=== PATIENT | female | born 1990 ===

== ENCOUNTER 2018-09-15 11:05 | Emergency (ER) | payer BC ==
[2018-09-15 11:16] VITALS: O2SAT 100
--- NOTE | 2018-09-15 12:37 | ED PDOC ---
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 Patient unresponsive but occasionally seen looking around when not being directly addressed; however, when being addressed she does not respond verbally and keeps her eyes closed. When patient's arm is lifted and dropped above her head, patient moves her arm to avoid hitting herself in the face. Due to patient's c linical condition, HPI, ROS, and history is limited. PMD: unobtainable Past Medical History Reviewed: Unable To Obtain Vital Signs: Last Vital Signs Temp 100.1 F H 09/15/18 11:12 Pulse 90 09/15/18 12:17 Resp 12 09/15/18 12:17 BP 117/72 09/15/18 12:17 Pulse Ox 100 09/15/18 12:17 - Family History Family History: States: Unknown Family Hx - Allergies Allergies/Adverse Reactions: Allergies Allergy/AdvReac Type Severity Reaction Status Date / Time Unobtainable Allergy Verified 09/15/18 11:12 Review of Systems Review Of Systems: ROS cannot be obtained secondary to pt's inabilty to answer questions. Physical Exam - Reviewed Nursing Documentation Reviewed: Yes Vital Signs Reviewed: Yes - Physical Exam Appears: Positive for: Well (with age appropriate appearance) Head Exam: Positive for: ATRAUMATIC, NORMAL INSPECTION, NORMOCEPHALIC Skin: Positive for: Normal Color, Warm Eye Exam: Positive for: PERRL ENT: Negative for: Other (tongue or oral pharynx swelling) Neck: Positive for: Normal, Painless ROM, Supple Cardiovascular/Chest: Positive for: Regular Rate, Rhythm Respiratory: Positive for: Normal Breath Sounds. Negative for: Crackles, Rales, Rhonchi, Wheezing, Respiratory Distress Gastrointestinal/Abdominal: Positive for: Normal Exam, Soft. Negative for: Tenderness, Other (signs of bruising or trauma to torso) Extremity: Negative for: Other (signs of bruising or trauma to extremities) Neurologic/Psych: Positive for: Other (gag reflex intact; pt localizes to pain) - Laboratory Results Result Diagrams: 09/15/18 14:20 09/15/18 14:20 - ECG O2 Sat by Pulse Oximetry: 100 (RA) Pulse Ox Interpretation: Normal Medical Decision Making Medical Decision Making: Time: 1158 A/P: patient with questionable altered mental status --no indications of trauma on PE --patient keeps eyes closed and not verbally responsive, however when it was mentioned that her clothing was going to be cut off for rapid evaluation, she moaned and opened her eyes --patient seen by EMS, nurses, and MD looking around when she was not obviously being evaluated / addressed --will further talk with patient is she becomes responsive, but in the mean time will attempt to get collateral through coworkers and family. Initial Impression: workup for reported syncopal episode Initial Plan: --EKG --CT Head w/o contrast due to pts unresponsiveness and syncopal episode --Reevaluation 1426 CT Head FINDINGS: HEMORRHAGE: No intracranial hemorrhage. BRAIN: Normal fonseca-white matter differentiation and density are appreciated throughout the cerebrum and cerebellum with the brainstem appearing unremarkable as well. There is no mass effect. There is no suspicious extra-axial fluid collection and the midline brain anatomy appears diffusely unremarkable. VENTRICLES: Unremarkable. No hydrocephalus. CALVARIUM: Unremarkable. PARANASAL SINUSES: Multifocal ethmoid sinusitis incidentally noted. MASTOID AIR CELLS: Unremarkable as visualized. No inflammatory changes. OTHER FINDINGS: None. IMPRESSION: Unremarkable CT of the brain. Incidental multifocal ethmoid sinusitis identified. 1706 Patient reports improvement in symptoms Repeat PE shows no neurological deficit, rash or airway compromise Patient to be discharged home and she has an appointment with her PMD scheduled for tomorrow Return parameters discussed Scribe Attestation: Documented by Jenny Anodide, acting as a scribe for Terri Campos MD. Provider Scribe Attestation: All medical record entries made by the Scribe were at my direction and pe rsonally dictated by me. I have reviewed the chart and agree that the record accurately reflects my personal performance of the history, physical exam, medical decision making, and the department course for this patient. I have also personally directed, reviewed, and agree with the discharge instructions and disposition. Disposition - Clinical Impression Clinical Impression: Altered mental status, unspecified, Syncope - Patient ED Disposition Is Patient to be Admitted: No - Disposition Disposition: Routine/Home (0747) Disposition Time: 17:07 Condition: IMPROVED Instructions: Altered Mental Status (DC) Forms: [facility] (Frisian) Print Language: FAROESE
--- NOTE | 2018-09-15 14:30 | CT ---
Date of service: 09/15/2018 PROCEDURE: CT HEAD WITHOUT CONTRAST. HISTORY: syncope COMPARISON: None available. TECHNIQUE: Axial computed tomography images were obtained through the head/brain without intravenous contrast. Radiation dose: Total exam DLP = 838.96 mGy-cm. This CT exam was performed using one or more of the following dose reduction techniques: Automated exposure control, adjustment of the mA and/or kV according to patient size, and/or use of iterative reconstruction technique. FINDINGS: HEMORRHAGE: No intracranial hemorrhage. BRAIN: Normal fonseca-white matter differentiation and density are appreciated throughout the cerebrum and cerebellum with the brainstem appearing unremarkable as well. There is no mass effect. There is no suspicious extra-axial fluid collection and the midline brain anatomy appears diffusely unremarkable. VENTRICLES: Unremarkable. No hydrocephalus. CALVARIUM: Unremarkable. PARANASAL SINUSES: Multifocal ethmoid sinusitis incidentally noted. MASTOID AIR CELLS: Unremarkable as visualized. No inflammatory changes. OTHER FINDINGS: None. IMPRESSION: Unremarkable CT of the brain. Incidental multifocal ethmoid sinusitis identified.
[2018-09-15 14:38] LABS: BASO # 0.1 K/uL (0.0-0.2); BASO % 0.9 % (0.0-2.0); BLOOD UREA NITROGEN 11 mg/dl (7-17); CALCIUM 8.9 mg/dL (8.4-10.2); EOS # 0.1 K/uL (0.0-0.7); EOS % 0.9 % (0.0-4.0); GFR NON-AFRICAN AMERICAN > 60; HEMOGLOBIN 14.1 g/dL (12.0-16.0); LYMPH # 1.4 K/uL (1.0-4.3); LYMPH % 20.9 % (20.0-40.0); MEAN CELL VOLUME 93.2 fl (81.0-99.0); MEAN CORPUSCULAR HEMOGLOBIN 31.8 pg (27.0-31.0); MEAN CORPUSCULAR HGB CONC 34.1 g/dL (33.0-37.0); MEAN PLATELET VOLUME 8.8 fl (7.2-11.7); MONO # 0.5 K/uL (0.0-0.8); MONO % 7.2 % (0.0-10.0); NEUT # 4.6 K/uL (1.8-7.0); NEUT % 70.1 % (50.0-75.0); NRBC % 0.1 % (0.0-0.0); RBC 4.44 Mil/uL (3.80-5.20); RED CELL DISTRIBUTION WIDTH 12.4 % (11.5-14.5); WHITE BLOOD COUNT 6.5 K/uL (4.8-10.8)
[2018-09-15] MEDS ORDERED: DiphenhydrAMINE 50 mg/ml Inj IVP STA (15:12)
[2018-09-15] MEDS ORDERED: DiphenhydrAMINE 50 mg/ml Inj ONE (15:24)
[2018-09-15] MEDS ORDERED: Sodium Chloride 0.9% 1,000 ML IV STA (15:40)
[2018-09-15 17:49] VITALS: BP 120/70; PULSE 83; RESP 18; TEMP 99
--- NOTE | 2018-09-15 20:36 | CARD ---
APPROVED REPORT Date of service: 09/15/2018 EKG Measurement Heart [id number] <Conclusion> Sinus rhythm with occasional premature ventricular complexes Otherwise normal ECG
== END 2018-09-15 17:49 | disposition home or self-care (01) ==
LOC: H.ER 11:05
DX: R55 Syncope and collapse (principal)
CPT/HCPCS: 70450; 80048; 81025; 82948; 85025; 93005; 96374; 99285; J1200; J7030